=== PATIENT | female | born 1985 | race Native Hawaiian/Other Pacific Islander ===

== ENCOUNTER 2018-01-06 14:09 | Emergency (ER) | payer MEDICARE ==
[2018-01-06] MEDS ORDERED: TDAP Vaccine 0.5 mL Syr IM ONE (14:41)
--- NOTE | 2018-01-06 14:48 | ED PDOC ---
Arrival/HPI - General Historian: Patient - History of Present Illness Time/Duration: 1 hour Symptom Onset: Sudden Symptom Course: Improving Quality: Unable to Describe Context: Home - General Chief Complaint: Upper Extremity Problem/Injury Time Seen by Provider: 01/06/18 14:41 - History of Present Illness Narrative History of Present Illness (Text): 01/06/18 14:48 32 year old female, no significant past medical history, presents to the emergency room with a finger tip skin avulsion 1 hour ago. Patient was at home using an onion slicer which accidentally sliced the tip of her right thumb nail and finger. Patient states there was a lot of bleeding which had decreased upon arrival to the emergency room. There is minimal pain. Denies numbness, tingling, decreased sensation, or decreased range of motion of the thumb or other digits. Denies fever, chills, headache, dizziness, nausea, vomiting, shortness of breath, cough, chest pain, abdominal pain, hearing or vision changes, or urinary symptoms. (Nicolás Harrell) 01/06/18 14:48 32 year old female, no significant past medical history, presents to the emergency room with a finger tip skin avulsion 1 hour ago. Patient was at home using an onion slicer which accidentally sliced the tip of her right thumb nail and finger. Patient states there was a lot of bleeding which had decreased upon arrival to the emergency room. There is minimal pain. Denies numbness, tingling, decreased sensation, or decreased range of motion of the thumb or other digits. Denies fever, chills, headache, dizziness, nausea, vomiting, shortness of breath, cough, chest pain, abdominal pain, hearing or vision changes, or urinary symptoms. (Stevan Mckeon) Past Medical History - Provider Review Nursing Documentation Reviewed: Yes - Tetanus Immunization Tetanus Immunization: >10 years Ago Family/Social History - Physician Review Nursing Documentation Reviewed: Yes Family/Social History: No Known Family HX Smoking Status: Never Smoked Hx Alcohol Use: No Hx Substance Use: No Hx Substance Use Treatment: No Allergies/Home Meds Allergies/Adverse Reactions: Allergies No Known Allergies Allergy (Verified 01/06/18 14:38) Review of Systems - Physician Review All systems were reviewed & negative as marked: Yes - Review of Systems Constitutional: absent: Fevers Eyes: absent: Vision Changes ENT: absent: Hearing Changes Respiratory: absent: SOB, Cough Cardiovascular: absent: Chest Pain, Palpitations Gastrointestinal: absent: Abdominal Pain, Nausea, Vomiting Genitourinary Female: absent: Dysuria, Hematuria Musculoskeletal: absent: Arthralgias, Back Pain Skin: Skin Lesions. absent: Rash Neurological: absent: Headache, Dizziness Endocrine: absent: Diaphoresis Physical Exam Vital Signs Reviewed: Yes Temperature: Afebrile Blood Pressure: Normal Pulse: Regular Respiratory Rate: Normal Appearance: Positive for: Well-Appearing, Non-Toxic, Comfortable Pain Distress: Mild Mental Status: Positive for: Alert and Oriented X 3 - Systems Exam Head: Present: Atraumatic, Normocephalic Pupils: Present: PERRL Extroacular Muscles: Present: EOMI Mouth: Present: Moist Mucous Membranes Respiratory/Chest: Present: Clear to Auscultation, Good Air Exchange. No: Respiratory Distress, Accessory Muscle Use Cardiovascular: Present: Regular Rate and Rhythm, Normal S1, S2. No: Murmurs Abdomen: No: Tenderness, Distention, Peritoneal Signs Upper Extremity: Present: Erythema Lower Extremity: Present: Normal Inspection. No: Edema Neurological: Present: GCS=15, CN II-XII Intact, Speech Normal Skin: Present: Erythematous, Other (nail and fingertip avulsion of the right thumb) Psychiatric: Present: Alert, Oriented x 3, Normal Insight, Normal Concentration Vital Signs Temp Pulse Resp BP Pulse Ox 01/06/18 16:05 98 F 84 18 114/64 100 01/06/18 14:47 98.2 F 97 H 18 107/63 100 01/06/18 14:10 98.2 F 97 H 18 107/63 100 Medical Decision Making ED Course and Treatment: 01/06/18 14:52 32F, presents to the ED with nail and fingertip avulsion of the right thumb. Wound explored and irrigated with normal saline. Bleeding controlled. Bacitracin and dressings applied. Instruction provided on wound management. Patient is to keep the wound clean. Avoid large bodies of water or baths for 2 weeks. Patient to follow up with PMD within 3-5 days. If symptoms worsen, including but not limited to fever, redness, decreased sensation in the finger, patient to return to emergency room. Patient verbalized understanding and agreement of treatment plan. Case reviewed and discussed with attending provider. In agreement with resident note, which includes further HPI details. Patient was seen and evaluated with resident, came up with plan and treatment together. (Nicolás Harrell) 01/06/18 14:52 32F, presents to the ED with nail and fingertip avulsion of the right thumb. Wound explored and irrigated with normal saline. Bleeding controlled. Bacitracin and dressings applied. Instruction provided on wound management. Patient is to keep the wound clean. Avoid large bodies of water or baths for 2 weeks. Patient to follow up with PMD within 3-5 days. If symptoms worsen, including but not limited to fever, redness, decreased s ensation in the finger, patient to return to emergency room. Patient verbalized understanding and agreement of treatment plan. Case reviewed and discussed with attending provider. In agreement with resident note, which includes further HPI details. Patient was seen and evaluated with resident, came up with plan and treatment together. (Stevan Mckeon) - Medication Orders Current Medication Orders: Discontinued Medications Tetanus/Reduced Diphtheria/Acell Pertussis (Boostrix Vaccine Inj) 0.5 ml IM .ONCE ONE Stop: 01/06/18 14:42 Last Admin: 01/06/18 14:49 Dose: 0.5 ml [facility] Immunization Data Document 01/06/18 14:49 SRE (Rec: 01/06/18 14:50 [facility] [id number]) Immunization Data Vaccine Information Sheet Given Yes Disposition/Present on Arrival - Present on Arrival Any Indicators Present on Arrival: No History of DVT/PE: No History of Uncontrolled Diabetes: No Urinary Catheter: No History of Decub. Ulcer: No - Disposition Have Diagnosis and Disposition been Completed?: Yes Disposition Time: 14:42 Patient Plan: Discharge - Disposition Diagnosis: Avulsion, finger tip Disposition: HOME/ ROUTINE Condition: GOOD Discharge Instructions (ExitCare): Wound Care (DC), Common Finger Injuries (DC) Additional Instructions: Please follow up with your primary medical doctor in 3-5 days. Please keep wound clean. Ok to shower. Please avoid large bodies of water and/or baths for the next 2 weeks. If symptoms worsen, including but not limited to fever, redness, or increased bleeding, please return to the emergency room. Forms: [facility] (Mongolian)
[2018-01-06 14:49] VITALS: RESP 18; O2SAT 100
[2018-01-06 14:50] VITALS: BMI 26.2
[2018-01-06 16:06] VITALS: BP 114/64; PULSE 84; TEMP 98
== END 2018-01-06 15:00 | disposition home or self-care (01) ==
LOC: ED 14:09
DX: S61.001A Unspecified open wound of right thumb without damage to nail, initial encounter (principal); W45.8XXA Other foreign body or object entering through skin, initial encounter; Y92.009 Unspecified place in unspecified non-institutional (private) residence as the place of occurrence of the external cause; Z23 Encounter for immunization